=== PATIENT | female | born 1995 | race African-American/Black ===

== ENCOUNTER 2017-10-18 10:17 | Emergency (ER) | payer MEDICAID, OTHER ==
[~2017-10-18] VITALS: Ht 177.8 cm; Wt 86.0 kg
[2017-10-18 10:27] VITALS: BP 159/88
[2017-10-18] MEDS ORDERED: LIDOCAINE HCL 1% 20ML VIAL (Pyxis) INJ MC ONE (11:00)
== END 2017-10-18 12:01 | disposition home or self-care (01) ==
LOC: ER 10:58
DX: L05.01 Pilonidal cyst with abscess (principal)
CPT/HCPCS: 10080; 99283; J3490

== ENCOUNTER 2019-04-22 07:45 | Emergency (ER) | payer MEDICAID, OTHER ==
[~2019-04-22] VITALS: Ht 172.7 cm; Wt 93.0 kg
[2019-04-22 07:53] VITALS: BP 155/93
== END 2019-04-22 08:40 | disposition home or self-care (01) ==
LOC: ER 07:45
DX: L42 Pityriasis rosea (principal)
CPT/HCPCS: 99282